=== PATIENT | male | born 1960 | race Caucasian/White ===

== ENCOUNTER 2023-07-27 09:12 | Outpatient (CLI) | payer MEDICARE, SELFPAY | END 2023-07-27 09:13 | disposition home or self-care (01) | LOC: LAB 09:19 | PROVIDERS: PCP Internal Medicine; Visit Provider Internal Medicine | DX: E11.42 Type 2 diabetes mellitus with diabetic polyneuropathy (principal); E03.9 Hypothyroidism, unspecified; Z79.84 Long term (current) use of oral hypoglycemic drugs; Z79.890 Hormone replacement therapy | CPT/HCPCS: 36415; 80053; 80061; 82607; 82746; 83036; 84439; 84443; 99204 ==